=== PATIENT | female | born 2000 | race Caucasian/White ===

== ENCOUNTER → 2019-04-26 | Outpatient (CLI) | payer OTHER ==
[~2019-04-26] MED LIST: AMPDEX30CR PO; ARIP15 PO; BCP; Bupropion Xl150 MG PO; CLON1 PO; CLOZ100 PO; GUAN1; GUAN1 PO; HYDHCL10; LISI20 PO; LITH300C PO; LITH300ER PO; NALT50 PO; OLAN5 PO; OLAN7.5 PO; RISP1; RISP2 PO; SULTRIDS PO; TRAZ100 PO; Zyprexa10 MG PO
== END | disposition home or self-care (01) ==
LOC: LAB SHORT 11:51 → LAB 11:51
DX: R30.9 Painful micturition, unspecified (principal)
CPT/HCPCS: 87086